=== PATIENT | male | born 1945 | race Caucasian/White ===

== ENCOUNTER 2017-10-20 10:10 | Outpatient (CLI) | payer MEDICARE ==
--- NOTE | 2017-10-20 12:42 | CT ---
CT ABDOMEN AND PELVIS WITH IV CONTRAST: DATE: 10/20/17. HISTORY: Left flank pain radiating anteriorly. No hematuria. COMPARISON: Noncontrast CT abdomen and pelvis 08/14/09. FINDINGS: There are calcified granulomata seen at each lung base. There are linear densities present at the ri ght lung base which has the appearance most suggestive of mild scarring. There is a moderate-sized hiatal hernia with a large portion of the stomach above the level of the he midiaphragms, the size of the hernia is increased from prior exam. Degenerative changes are present in the spine. A sclerotic density is seen within the left iliac bon e which is stable compared to a study in 2009 and may represent a bone island. There is an adjacent small subchondral cystic structure also noted which is also stable suggesting benign finding. The liver, spleen, pancreas, bilateral adrenal glands, kidneys, urinary bladder, and opacified bowel demonstrate a normal CT appearance. The appendix is visualized and normal in caliber. There are sca ttered colonic diverticula. There is no evidence of diverticulitis. Sigmoid colon extends into the left upper quadrant and is redundant but otherwise has a normal CT appearance. Vascular calcification is seen in the abdominal aorta and iliac arteries. There is a fat-containing umbilical hernia again present. There has been no interval change when compared to the noncontrasted CT scan exam, although there is resolution of previously noted left hydronephrosis and distal left ureteral calculus. IMPRESSION: 1. No acute findings are seen in the abdomen or pelvis. 2. Moderately large hiatal hernia with the majority of the stomach above the hemidiaphragms. 3. Scarring at the right lung base. 4. Colonic diverticulosis. 5. Fat-containing umbilical hernia. POS: [facility]
[2017-10-20] MEDS ORDERED: Iopamidol 370 76% 100 ML VIAL ONE (16:21)
== END 2017-10-20 10:11 | disposition home or self-care (01) ==
LOC: CT 10:10
PROVIDERS: ATTEND Internal Medicine Gastroenterology
DX: I85.00 Esophageal varices without bleeding (principal); K44.9 Diaphragmatic hernia without obstruction or gangrene; K57.30 Diverticulosis of large intestine without perforation or abscess without bleeding; K42.9 Umbilical hernia without obstruction or gangrene; J98.4 Other disorders of lung
CPT/HCPCS: 74177